=== PATIENT | male | born 1970 | race Caucasian/White ===

== ENCOUNTER 2018-09-27 09:32 | Emergency (ER) | payer OTHER ==
[~2018-09-27] VITALS: Ht 167.6 cm; Wt 73.5 kg
== END 2018-09-27 11:47 | disposition home or self-care (01) ==
LOC: ER 09:32
DX: L72.3 Sebaceous cyst (principal)

== ENCOUNTER 2018-10-07 10:11 | Emergency (ER) | payer OTHER ==
[~2018-10-07] VITALS: Ht 165.1 cm; Wt 70.3 kg
== END 2018-10-07 15:06 | disposition home or self-care (01) ==
LOC: ER 10:11
DX: Z48.02 Encounter for removal of sutures (principal)